=== PATIENT | female | born 1950 ===

== ENCOUNTER 2017-03-26 09:32 | Day surgery (SDC) | payer MEDICARE ==
[2017-03-26] MEDS ORDERED: Lactated Ringer's 1,000 ML IV ONE (09:42)
[2017-03-26] MEDS ORDERED: Lidocaine 2% MPF (5 ml) Inj ONE (11:10)
[2017-03-26] MEDS ORDERED: Propofol 10 mg/ml Inj (20 ML) ONE (11:10)
[2017-03-26 11:47] VITALS: TEMP 97; O2SAT 100
[2017-03-26 12:01] VITALS: BP 101/69; PULSE 59; RESP 16
== END 2017-03-26 12:29 | disposition home or self-care (01) ==
LOC: H.ENDO 09:32
PROVIDERS: ATTEND Internal Medicine Gastroenterology
DX: Z12.11 Encounter for screening for malignant neoplasm of colon (principal); E03.9 Hypothyroidism, unspecified; K64.8 Other hemorrhoids; K29.50 Unspecified chronic gastritis without bleeding; K31.9 Disease of stomach and duodenum, unspecified; K30 Functional dyspepsia
CPT/HCPCS: 43239; 45378; 88305; J2704; J7120